=== PATIENT | female | born 1960 | race Caucasian/White ===

== ENCOUNTER → 2024-01-26 09:55 | Outpatient (REF) | payer MEDICARE, MEDICAID, SELFPAY | LOC: HWWDC 09:55 | PROVIDERS: ATTENDING PHYSICIAN Internal Medicine | DX: Z12.31 Encounter for screening mammogram for malignant neoplasm of breast (principal) | CPT/HCPCS: 77063; 77067 ==

== ENCOUNTER → 2025-01-11 11:31 | Outpatient (REF) | payer MEDICARE, MEDICAID, SELFPAY | LOC: HWWDC 11:31 | PROVIDERS: ATTENDING PHYSICIAN Internal Medicine | DX: Z12.31 Encounter for screening mammogram for malignant neoplasm of breast (principal) | CPT/HCPCS: 77063; 77067 ==

== ENCOUNTER 2025-01-12 13:57 | Day surgery (SDC) | payer MEDICARE, MEDICAID, SELFPAY ==
[2025-01-12 11:07] VITALS: BMI 35.4
[2025-01-12 11:12] VITALS: BMI 35.4
[2025-01-12 11:20] VITALS: BP 121/60
--- NOTE | 2025-01-12 12:12 | PTCARENOTE ---
Patients caregiver filled in the times on patients medication list.
[2025-01-12 13:56] VITALS: BP 105/48
[2025-01-12 14:00] VITALS: BP 122/53
[2025-01-12 14:15] VITALS: BP 106/58
== END 2025-01-12 14:30 | disposition home or self-care (01) ==
LOC: SDS 13:57
PROVIDERS: ATTENDING PHYSICIAN Internal Medicine Gastroenterology
DX: Z12.11 Encounter for screening for malignant neoplasm of colon (principal); K64.8 Other hemorrhoids; K57.30 Diverticulosis of large intestine without perforation or abscess without bleeding; Z86.0100 Personal history of colon polyps, unspecified
CPT/HCPCS: G0105